=== PATIENT | male | born 1955 | race Caucasian/White ===

== ENCOUNTER → 2020-06-18 | Outpatient (CLI) | payer OTHER ==
[~2020-06-18] VITALS: Ht 185.4 cm; Wt 138.3 kg
[~2020-06-18] MED LIST: ASA81BEC PO; BENZONATATE200 MG PO; CELEXA 20 MG TA20 MG PO; FLONASE 0.05%50 MCG NARES; LORATIDINE 10 M10 M1 PO; MELATONIN10 M3 PO; PROAIR HFA8.5 GM INH; ROSUVASTATIN CA20 MG PO; ZESTRIL40 MG PO
[2020-06-18 07:23] VITALS: BP 159/78
[2020-06-18 07:44] LABS: HEMATOCRIT 37.2 % (42.0-52.0); HEMOGLOBIN 12.2 gm/dL (14.0-18.0); MCH 27.9 pg (26.0-34.0); MCHC 32.9 g/dL (28.0-37.0); MCV 84.8 fL (80.0-100.0); RBC 4.39 mil/uL (4.50-6.00); RDW 15.2 % (10.5-14.5); WBC 5.9 thou/uL (4.0-11.0)
[2020-06-18 07:54] LABS: CREATININE 0.9 mg/dL (0.7-1.3)
--- NOTE | 2020-06-18 08:44 | EKG ---
[address] [address] ELECTROCARDIOGRAM REPORT Name: JOSAFAT QUEEN [facility] #: [facility] [id number] Admission: 06/18/20 Attend Phys: Brendon Brown MD, Discharge: Date of : 53 Report #: [id number] [facility] Test Date: 2020-06-18 Test Time: 07:40:13 Pat Name: JOSAFAT QUEEN Department: Room: Gender: [employer]: [facility] : 1955 Requested By: Brendon Brown Order Number: [id number] MD: Boo Newton Measurements Intervals [place] Rate: 73 P: 14 MO: 156 QRS: 15 QRSD: 94 T: 24 QT: 414 QTc: 457 Interpretive Statements Sinus rhythm Normal tracing No previous ECG available for comparison Electronically Signed On 06-18-2020 8:44:22 CDT by Boo Newton [email or web address] <ELECTRONICALLY SIGNED> By: Boo Newton MD, [facility] 06/18/20 0844 0740 0740 Boo Newton MD, FAC /EPI
--- NOTE | 2020-06-18 17:00 | CATHLAB ---
[facility] [place] [address] INVASIVE PROCEDURE REPORT Name: JOSAFAT QUEEN Room #: RUBA MckayVeroCyrilVero#: [id number] Admission: 06/18/20 Attend Phys: Brendon Brown MD, Discharge: Date of : 53 Report #: [id number] THIS REPORT FOR: cc: Ervin Hallman James R. DO Mancuso, Gerald M. MD [facility] ~ APPROVED REPORT Study performed: 06/18/2020 08:04:06 Patient Details Patient Status: Out-Patient Room #: The patient is a 64 year-old male Event Personnel Brendon Brown Customer Service Security Officer, Gisele Avila RTR Monitor, Derian Dawn RTR Scrub, Ping Hernandez RN senior financial reporting analyst Performed Art Access - R femoral artery* Jesus Manuel Access - R femoral vein Right and Left Heart Cath w/or w/o Coronarie [id number] RL Aortogram Abdominal Peripheral Angio [id number] Initial Mod Sed Same Phys/QHP Gr5y [id number] [id number] Mod Sed Same Phys/QHP Ea [id number] Procedure Narrative The Right Groin^ was infiltrated with 1% Lidocaine subcutaneous anesthesia. A Right Heart Catheterization was performed with a 67 Fr. Keno-Gypsy catheter and pressure were recorded. Cardiac outputs were obtained by the Thermal Dilution method. A PINNACLE 6FR Sheath #[id number] sheath was inserted into the RFA. Coronary angiography was performed using coronary diagnostic catheters. The right coronary system was accessed and visualized with a JR4 catheter. The left coronary system was accessed and visualized with a JL5 catheter. The left ventricle was accessed and visualized with a PIGTAIL catheter. Pre-demployment femoral angiogram was performed . Closure device was deployed with a Fr MYNXGRIP 6/7F #[id number]. The patient tolerated the procedure well and there were no complications associated with the procedure. There was no hematoma. Intraoperative Conscious Sedation Sedation start time: 9:03 Case end Time: 9:40 Fentanyl 200 mcg Versed [address] [address] INVASIVE PROCEDURE REPORT Name: JOSAFAT QUEEN Room #: RUBA iDaz#: [id number] Admission: 06/18/20 Attend Phys: Brendon Brown, Discharge: Date of : 53 Report #: [id number] Fluoro Time: 3.00 minutes Dose: DAP 26038.50 cGycm2 1117 mGy Contrast Type and Amount: Omnipaque 110 ml Hemodynamics The right atrial mean pressure is 13 mmHg. The right ventricular pressure is 37/3 mmHg. The pulmonary artery pressure is 46/12 mmHg with a mean of 27 mmHg. The mean pulmonary capillary wedge pressure is 23 mmHg. The aortic pressure is 162/80 mmHg with a mean of 112 mmHg. The left ventricular pressure is 171/2 mmHg with a mean of mmHg. The left ventricular end diastolic pressure is 30 mmHg. The cardiac output using thermo method is 7.15 L/min. The cardiac index using thermo method is 2.75 L/min/m2. Conclusion #1. Successful right heart catheterization with cardiac output by thermodilution. See above hemodynamics. #2 normal ventricular size and mild global hypokinesis EF 50% range. #3 abdominal aortogram revealed mild aortic ectasia no aneurysm formation single bilateral renal arteries widely patent #4 essentially normal coronary arteries with minimal plaquing minimal calcification in a left dominant system. No occlusive disease. Selective engagement of left main and right coronary artery as noted above. Recommendations and plan: Continue aggressive risk factor modification there is moderate pulmonary hypertension consistent with some volume overload. IV Lasix given and will be added as outpatient. Follow-up with Dr. Calvin in [facility]. <ELECTRONICALLY SIGNED> By: Brendon Brown MD, FACC 06/18/201658 58 58 Brendon Brown MD, FACC /INF
== END | disposition home or self-care (01) ==
LOC: CATH 06:22
PROVIDERS: ATTEND Internal Medicine Cardiovascular Disease
DX: R94.39 Abnormal result of other cardiovascular function study (principal); R07.89 Other chest pain; I25.10 Atherosclerotic heart disease of native coronary artery without angina pectoris; R06.00 Dyspnea, unspecified; I77.811 Abdominal aortic ectasia; I10 Essential (primary) hypertension; E78.00 Pure hypercholesterolemia, unspecified; E11.9 Type 2 diabetes mellitus without complications; D64.9 Anemia, unspecified; G47.30 Sleep apnea, unspecified; K21.9 Gastro-esophageal reflux disease without esophagitis; Z98.890 Other specified postprocedural states; Z79.899 Other long term (current) drug therapy